=== PATIENT | female | born 1995 | race Caucasian/White ===

== ENCOUNTER 2016-10-30 14:24 | Emergency (ER) | payer MEDICAID ==
[2016-10-30 14:38] VITALS: BP 142/77; PULSE 97; RESP 22; TEMP 98; O2SAT 100
--- NOTE | 2016-10-30 15:06 | ED PDOC ---
HPI: Female Pain Time Seen by Provider: 10/30/16 14:32 Chief Complaint (Nursing): Breast Problem Chief Complaint (Provider): Breast Pain History Per: Patient Additional Complaint(s): 21 yo female, no PMH, presents to ED with complaints of a lumps to bilateral breast, that come and go x years now. Pt very concerned because her mother was recently diagnosed with breast CA Pt reports she is due for her period next month. Taking Motrin with little relief. Past Medical History Reviewed: Nursing Documentation, Vital Signs Vital Signs: Last Vital Signs Temp 98.0 F 10/30/16 14:26 Pulse 97 H 10/30/16 14:26 Resp 22 10/30/16 14:26 BP 142/77 10/30/16 14:26 Pulse Ox 100 10/30/16 14:26 - Medical History PMH: Asthma - Surgical History Surgical History: No Surg Hx - Family History Family History: States: No Known Family Hx - Living Arrangements Living Arrangements: With Family - Home Medications Home Medications: Ambulatory Orders Medication Instructions Recorded Ibuprofen [Motrin] 600 mg PO Q8 #30 tab 12/20/14 Cephalexin [Keflex] 500 mg PO QID #20 cap 12/29/14 Cephalexin [cephalexin] 500 mg PO QID #20 cap 08/30/16 Naproxen [Naprosyn Tab] 375 mg PO Q8 PRN #21 tab 08/30/16 Ibuprofen [Motrin] 600 mg PO Q6 #20 tab 10/30/16 - Allergies Allergies/Adverse Reactions: Allergies Allergy/AdvReac Type Severity Reaction Status Date / Time No Known Allergies Allergy Verified 12/20/14 12:03 Review of Systems ROS Statement: Except As Marked, All Systems Reviewed And Found Negative Genitourinary Female: Positive for: Other (breast pain) Physical Exam - Reviewed Nursing Documentation Reviewed: Yes Vital Signs Reviewed: Yes - Physical Exam Appears: Positive for: Well, Non-toxic, No Acute Distress Head Exam: Positive for: ATRAUMATIC, NORMAL INSPECTION, NORMOCEPHALIC Skin: Positive for: Normal Color, Warm, DRY Eye Exam: Positive for: EOMI, Normal appearance, PERRL ENT: Positive for: Normal ENT Inspection Neck: Positive for: Normal, Painless ROM Cardiovascular/Chest: Positive for: Regular Rate, Rhythm Respiratory: Positive for: CNT, Normal Breath Sounds Gastrointestinal/Abdominal: Positive for: Normal Exam, Bowel Sounds, Soft Back: Positive for: Normal Inspection Extremity: Positive for: Normal ROM Neurologic/Psych: Positive for: Alert, Oriented Comments: bilateral breast: Left (+) tenderness and small, tender, mobile masses felt to 2 upper outter region Right (+) tenderness and small, tender, mobile masses felt to 2 upper outter region Neither with skin changes or nipple discharge - ECG O2 Sat by Pulse Oximetry: 100 Medical Decision Making Medical Decision Making: Breast US: Cystic changes, as per US tech Pt advised to continue to follow up with OB. Signs and symptoms of breast cysts discussed at length Self breast exam practices discussed as well. Disposition - Clinical Impression Clinical Impression: Cyst of breast - Patient ED Disposition Is Patient to be Admitted: No - Disposition Disposition: Routine/Home Disposition Time: 17:37 Condition: STABLE Prescriptions: Ibuprofen [Motrin] 600 mg PO Q6 #20 tab Instructions: Cyst (ED)
--- NOTE | 2016-10-30 19:52 | US ---
EXAM: US Left Breast Complete US Right Breast Complete CLINICAL HISTORY: 21 years old, female; Pain; Breast pain; Bilateral; Additional info: Breast masses bilaterally, at 2 oclock on the right, 10 o'clock on left TECHNIQUE: Static sonographic images of the bilateral breasts with image documentation utilizing a linear transducer. Imaging was obtained in all four quadrants, retroareolar region, and the axillae. EXAM DATE/TIME: 10/30/2016 3:07 PM COMPARISON: No relevant prior studies available. FINDINGS: The upper inner quadrant of the right breast was scanned, in the area of clinical interest, from the 12:00 to 3:00 positions. No masses are seen. No fluid collection is visualized. The upper outer quadrant of the left breast was scanned, in the area of clinical interest, from the 12:00 to 3:00 positions. At the 1:00 position, 1 cm from the nipple, there is a 4.8 x 3.8 x 2 mm anechoic, oval-shaped lesion. This is wider than it is tall, has circumscribed margins, and does not demonstrate flow within it on color imaging. It is associated with mild through transmission. It has an ultrasound appearance most compatible with a simple cyst. No additional lesions are identified. IMPRESSION: 4.8 mm simple cyst at the 1:00 position in the left breast. No focal lesions identified in the right breast. No solid masses visualized. Clinical followup is recommended. Consider followup mammography for further evaluation, as indicated clinically. Birads code 2 Benign findings.
== END 2016-10-30 18:00 | disposition home or self-care (01) ==
LOC: H.ER 14:24
DX: N64.4 Mastodynia (principal); N63 Unspecified lump in breast; J45.909 Unspecified asthma, uncomplicated

== ENCOUNTER 2018-05-04 17:59 | Emergency (ER) | payer MEDICAID, OTHER ==
[2018-05-04] MEDS ORDERED: Naproxen 500 MG TAB PO STA (19:23)
[2018-05-04] MEDS ORDERED: Bacitracin 500 Units/gm Oint Foilpak UD TOP STA (19:24)
--- NOTE | 2018-05-04 19:35 | ED PDOC ---
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 She reports it appeared as if she landed on broken glass and is concerned for a fracture and glass stuck in the hand. Denies meds [employer] or prior fx / surgery to hand. No other complaints, denies head injury or LOC. Right hand dominant Tetanus not up to date. LNMP: 04/30/2018 PMD: Uri Ponce Past Medical History Reviewed: Historical Data, Nursing Documentation, Vital Signs Vital Signs: Last Vital Signs Temp 97.6 F 05/04/18 18:22 Pulse 82 05/04/18 18:22 Resp 16 05/04/18 18:22 BP 129/87 05/04/18 18:22 Pulse Ox 98 05/04/18 18:22 - Medical History PMH: Asthma - Surgical History Surgical History: No Surg Hx - Family History Family History: States: Unknown Family Hx - Immunization History Hx Tetanus Toxoid Vaccination: No (not UTD) - Home Medications Home Medications: Ambulatory Orders Medication Instructions Recorded Albuterol 0.083% [Albuterol 3 ml IH Q4 #30 neb 10/29/17 Sulfate 3 Ml] Albuterol Sulfate [Ventolin Hfa] 1 puff IH PRN PRN 10/29/17 Loratadine/Pseudoephedrine 1 each PO DAILY 10/29/17 [Claritin-D 24 Hour Tablet] Montelukast [Singulair] 5 mg PO DAILY 10/29/17 RX: Albuterol 0.083% [Albuterol 2.5 mg IH PRN PRN 10/29/17 0.083% Inhal Hetal (2.5 mg/3 ml) UD] RX: Azithromycin 250 mg PO DAILY #6 tab 10/29/17 predniSONE [Prednisone] 60 mg PO DAILY #12 tab 10/29/17 Acetaminophen [Acetaminophen 8 650 mg PO Q8 PRN #21 tablet.er 05/04/18 Hour] RX: Bacitracin Ointment 1 applic TOP BID #1 tube 05/04/18 [Bacitracin] RX: Naproxen 500 mg PO BID PRN #20 tab 05/04/18 - Allergies Allergies/Adverse Reactions: Allergies Allergy/AdvReac Type Severity Reaction Status Date / Time No Known Allergies Allergy Verified 12/20/14 12:03 Review of Systems ROS Statement: Except As Marked, All Systems Reviewed And Found Negative Musculoskeletal: Positive for: Hand Pain (right) Physical Exam - Reviewed Nursing Documentation Reviewed: Yes Vital Signs Reviewed: Yes - Physical Exam Comments: GENERAL APPEARANCE: Patient is awake, alert, oriented x 3, uncomfortable appearing. SKIN: Warm, dry; (-) cyanosis. NECK: Supple, FROM ENT: Mucus membranes moist. Airway patent, (-) stridor. CHEST AND RESPIRATORY: (-) rales, (-) rhonchi, (-) wheezes; breath sounds equal bilaterally. Respirations even and nonlabored. HEART AND CARDIOVASCULAR: (-) irregularity RIGHT UPPER EXTREMITY: Dorsum of third MCP right hand .5cm x.5cm superficial skin avulsion; to the dorsum of the 4th MCP of right hand .5cm c-shaped abrasion; to dorsum 5th MCP superficial abrasions x2. (+) Diffuse tenderness to dorsum of right hand. Decreased flexion of digits secondary to pain, full ROM wrist with no tenderness. (-) Snuffbox tenderness. Remainder of Upper Extremity non tender with FROM. NEURO AND PSYCH: Mental status as above. Gait: steady. Speech: clear. (-) facial asymmetry - Laboratory Results Urine POC: Negative - ECG O2 Sat by Pulse Oximetry: 98 (RA) Pulse Ox Interpretation: Normal Medical Decision Making Medical Decision Making: Initial Impression: Acute hand pain and abrasions s/p fall Time: 1919 Initial Plan: --Right hand XR --Naproxen 500mg PO --Tetanus booster 1999 XR: no fracture, no foreign body, as read by MONI. Patient advised that official radiology read of XR is still pending and will call the patient if there is any discrepancy within 24 hours. 2029 Wounds soaked in saline and betadine solution. Bacitracin, telfa, and cling dressing applied by Elaine MONTENEGRO. NV intact after bandage placement. Educated on wound care. Patient supplied with wound care supplies in ED. 2039 On re-evaluation, patient reports improvement of symptoms. On exam, patient remains AAOx3, in no acute distress. Lungs clear to auscultation, cardiac RRR, repeat neuro exam shows no focal findings. Vitals stable. Lab /Diagnostic results d/w the patient in great detail. Diagnosis of acute hand pain, abrasions, skin avulsion s/p fall d/w the patient. Based on history, exam and diagnostic results, plan will be for outpatient follow up with PMD for wound check. Patient instructed to follow-up with pmd / referral provided / the clinic in 1- 2 days without fail. Advised to take medication as prescribed. Return to the emergency room at any time for any new or worsening symptoms. Patient states she fully agrees with and understands discharge instructions. States that she agrees with the plan and disposition. Verbalized and repeated discharge instructions and plan. I have given the patient opportunity to ask any additional questions. Scribe Attestation: Documented by Leeanne Jacobsen, acting as a scribe for Yuki Henry PA-C. Provider Scribe Attestation: All medical record entries made by the Scribe were at my direction and personally dictated by me. I have reviewed the chart and agree that the record accurately reflects my personal performance of the history, physical exam, medical decision making, and the department course for this patient. I have also personally directed, reviewed, and agree with the discharge instructions and disposition. Disposition - Clinical Impression Clinical Impression: Skin avulsion, Abrasion of hand, Hand pain, right, Fall - Patient ED Disposition Is Patient to be Admitted: No Counseled Patient/Family Regarding: Studies Performed, Diagnosis, Need For Followup, Rx Given - Disposition Referrals: Uri Ponce MD [Primary Care Provider] - Disposition: Routine/Home Disposition Time: 20:40 Condition: STABLE Additional Instructions: KEEP WOUND CLEAN AND DRY. LEAVE ED DRESSING IN PLACE FOR 24 HOURS. AFTERWARDS, CLEAN WOUND 2X DAILY WITH SOAP AND WATER. APPLY ANTIBACTERIAL OINTMENT TWICE DAILY AFTER YOU CLEAN WOUND. The emergency medical care you received today was directed at your acute symptoms. If you were prescribed any medication, please fill it and take as directed. It may take several days for your symptoms to resolve. Return to the Emergency Department if your symptoms worsen, do not improve, or if you have any other problems. Please contact your doctor in 2 days for re-evaluation and follow up / or call one of the physicians/clinics you have been referred to that are listed on the Patient Visit Information form that is included in your discharge packet. Bring any paperwork you were given at discharge with you along with any medications you are taking to your follow up visit. Our treatment cannot replace ongoing medical care by a primary care provider (PCP) outside of the emergency department. Prescriptions: Acetaminophen [Acetaminophen 8 Hour] 650 mg PO Q8 PRN #21 tablet.er PRN Reason: Pain, Moderate (4-7) RX: Bacitracin Ointment [Bacitracin] 1 applic TOP BID #1 tube RX: Naproxen 500 mg PO BID PRN #20 tab PRN Reason: Pain, Moderate (4-7) Instructions: Skin Abrasions, Wound Care, Hand Pain Forms: [facility] (Turkish) Print Language: EMIRATI - POA Present On Arrival: Falls Or Trauma
[2018-05-04] MEDS ORDERED: Tdap Vaccine 0.5 ml Vial (10-64 yrs) IM ONE ×2 (19:37→20:18)
[2018-05-04] MEDS ORDERED: Povidone Iodine Topical 10% Sol ONE (19:51)
[2018-05-04] MEDS ORDERED: Naproxen 500 MG TAB PO ONE (20:15)
[2018-05-04] MEDS ORDERED: Bacitracin 500 Units/gm Oint Foilpak UD ONE (20:15)
[2018-05-04 21:04] VITALS: BP 138/74; PULSE 75; RESP 18; TEMP 98.2
--- NOTE | 2018-05-05 10:46 | RAD ---
Date of service: 05/04/2018 PROCEDURE: Radiographs of the right hand HISTORY: r/o FB, r/o fracture COMPARISON: None. FINDINGS: BONES: Bone alignment and mineralization are normal. There is no acute displaced fracture or bone destruction. JOINTS: The joint spaces are preserved. SOFT TISSUES: Normal. No radiopaque foreign body. OTHER FINDINGS: None. IMPRESSION: No acute displaced fracture or dislocation.
[2018-05-05 17:40] VITALS: O2SAT 98
== END 2018-05-04 21:00 | disposition home or self-care (01) ==
LOC: SUPCPDRO 17:59 → H.ER 17:59
DX: S60.511A Abrasion of right hand, initial encounter (principal); M79.641 Pain in right hand; W01.0XXA Fall on same level from slipping, tripping and stumbling without subsequent striking against object, initial encounter; Y92.89 Other specified places as the place of occurrence of the external cause

== ENCOUNTER 2018-06-29 18:44 | Emergency (ER) | payer SELFPAY ==
[2018-06-29 19:11] VITALS: BP 132/84; PULSE 76; RESP 16; TEMP 98.5; O2SAT 100
[2018-06-29 20:18] LABS: BASO % 1.1 % (0.0-2.0); EOS # 0.1 K/uL (0.0-0.7); EOS % 1.8 % (0.0-4.0); HEMOGLOBIN 13.9 g/dL (12.0-16.0); LYMPH # 1.6 K/uL (1.0-4.3); LYMPH % 37.6 % (20.0-40.0); MEAN CELL VOLUME 95.4 fl (81.0-99.0); MEAN CORPUSCULAR HEMOGLOBIN 31.7 pg (27.0-31.0); MEAN CORPUSCULAR HGB CONC 33.3 g/dL (33.0-37.0); MEAN PLATELET VOLUME 7.3 fl (7.2-11.7); MONO # 0.5 K/uL (0.0-0.8); MONO % 12.7 % (0.0-10.0); NEUT % 46.8 % (50.0-75.0); NRBC % 0.1 % (0.0-0.0); RBC 4.37 Mil/uL (3.80-5.20); RED CELL DISTRIBUTION WIDTH 14.1 % (11.5-14.5); WHITE BLOOD COUNT 4.2 K/uL (4.8-10.8)
[2018-06-29 20:31] LABS: SQUAMOUS EPITHIAL 5 /hpf (0-5); URINE BILIRUBIN NEGATIVE (NEGATIVE); URINE BLOOD SMALL (NEGATIVE); URINE CLARITY SLIGHTY-CLOUDY (Clear); URINE COLOR YELLOW (YELLOW); URINE GLUCOSE (UA) NEG (NEGATIVE); URINE LEUKOCYTE ESTERASE NEG Leu/uL (Negative); URINE PROTEIN NEGATIVE (NEGATIVE); URINE UROBILINOGEN 0.2-1.0 mg/dL (0.2-1.0)
[2018-06-29 20:33] LABS: ALB/GLOB RATIO 1.3 (1.0-2.1); ALBUMIN 4.7 g/dL (3.5-5.0); ALT/SGPT 20 U/L (9-52); AST/SGOT 23 U/L (14-36); BLOOD UREA NITROGEN 12 mg/dl (7-17); CALCIUM 9.5 mg/dL (8.4-10.2); GFR NON-AFRICAN AMERICAN > 60; LIPASE 95 U/L (23-300)
--- NOTE | 2018-06-29 20:38 | ED PDOC ---
HPI: Abdomen Time Seen by Provider: 06/29/18 19:14 Chief Complaint (Nursing): Abdominal Pain Chief Complaint (Provider): Abdominal Pain History Per: Patient History/Exam Limitations: no limitations Onset/Duration Of Symptoms: Days (x3 days) Current Symptoms Are (Timing): Constant Severity: Severe Location Of Pain/Discomfort: LLQ Additional Complaint(s): Manda Lucas is a 23 year old female with a hsitory of asthma, who presents to the emergency department complaining of LLQ pain. Patient states that she initially thought that she was having menstrual cramps but she is a week away from her period. She states that the pain is more constant and severe in the past day. Patient denies having any nausea, vomiting, diarrhea, fever or any urinary symptoms. PMD: Uri Ponce Past Medical History Reviewed: Historical Data, Nursing Documentation, Vital Signs Vital Signs: Last Vital Signs Temp 98.5 F 06/29/18 19:08 Pulse 76 06/29/18 19:08 Resp 16 06/29/18 19:08 BP 132/84 06/29/18 19:08 Pulse Ox 100 06/29/18 19:08 - Medical History PMH: Asthma - Surgical History Surgical History: No Surg Hx - Family History Family History: States: Unknown Family Hx - Immunization History Hx Tetanus Toxoid Vaccination: No (not UTD) Hx Influenza Vaccination: Yes Hx Pneumococcal Vaccination: No - Home Medications Home Medications: Ambulatory Orders Medication Instructions Recorded Albuterol 0.083% [Albuterol 0.083% 2.5 mg IH PRN PRN 10/29/17 Inhal Hetal (2.5 mg/3 ml) UD] Albuterol 0.083% [Albuterol 3 ml IH Q4 #30 neb 10/29/17 Sulfate 3 Ml] Albuterol Sulfate [Ventolin Hfa] 1 puff IH PRN PRN 10/29/17 Azithromycin 250 mg PO DAILY #6 tab 10/29/17 Loratadine/Pseudoephedrine 1 each PO DAILY 10/29/17 [Claritin-D 24 Hour Tablet] Montelukast [Singulair] 5 mg PO DAILY 10/29/17 predniSONE [Prednisone] 60 mg PO DAILY #12 tab 10/29/17 Acetaminophen [Acetaminophen 8 650 mg PO Q8 PRN #21 tablet.er 05/04/18 Hour] Bacitracin Ointment [Bacitracin] 1 applic TOP BID #1 tube 05/04/18 Naproxen 500 mg PO BID PRN #20 tab 05/04/18 Naproxen [Naprosyn] 500 mg PO Q12 #14 tab 06/29/18 - Allergies Allergies/Adverse Reactions: Allergies Allergy/AdvReac Type Severity Reaction Status Date / Time No Known Allergies Allergy Verified 06/29/18 19:08 Review of Systems ROS Statement: Except As Marked, All Systems Reviewed And Found Negative Constitutional: Negative for: Fever Gastrointestinal: Positive for: Abdominal Pain. Negative for: Nausea, Vomiting, Diarrhea Genitourinary Female: Negative for: Dysuria, Frequency, Incontinence, Hematuria Physical Exam - Reviewed Nursing Documentation Reviewed: Yes Vital Signs Reviewed: Yes - Physical Exam Appears: Positive for: Non-toxic, No Acute Distress Head Exam: Positive for: ATRAUMATIC, NORMOCEPHALIC Skin: Positive for: Normal Color, Warm, Dry Eye Exam: Positive for: Normal appearance, EOMI, PERRL ENT: Positive for: Normal ENT Inspection Neck: Positive for: Normal, Painless ROM, Supple Cardiovascular/Chest: Positive for: Regular Rate, Rhythm. Negative for: Murmur Respiratory: Positive for: Normal Breath Sounds. Negative for: Respiratory Distress Gastrointestinal/Abdominal: Positive for: Tenderness (LLQ ) Back: Positive for: Normal Inspection. Negative for: L CVA Tenderness, R CVA Tenderness, Vertebral Tenderness Extremity: Positive for: Normal ROM. Negative for: Pedal Edema, Deformity Neurologic/Psych: Positive for: Alert, Oriented. Negative for: Motor/Sensory Deficits - Laboratory Results Result Diagrams: 06/29/18 20:14 06/29/18 20:14 - ECG O2 Sat by Pulse Oximetry: 100 (RA) Pulse Ox Interpretation: Normal Medical Decision Making Medical Decision Making: Time: 2013 Impression: 23 year old female with LLQ tenderness Plan: --CMP --Lipase --ED urine --ED urine dipstick --Urinalysis --Transvaginal US --Toradol 30 mg IV --IV insertion 23:23 Labs reviewed no clinically significant abnormalities. Patient reports mild improvement of symptoms. She is stable for discharge. Diagnosis is ovarian cyst. Scribe Attestation: Documented by Sterling Villagomez, acting as a scribe for Bari Alexander MD. Provider Scribe Attestation: All medical record entries made by the Scribe were at my direction and personally dictated by me. I have reviewed the chart and agree that the record accurately reflects my personal performance of the history, physical exam, medical decision making, and the department course for this patient. I have also personally directed, reviewed, and agree with the discharge instructions and di sposition. Disposition - Clinical Impression Clinical Impression: Ovarian cyst - Disposition Referrals: [facility] [Outside] Disposition: Routine/Home Disposition Time: 23:23 Condition: STABLE Additional Instructions: MANDA LUCAS, thank you for letting us take care of you today. Your provider was Bari Bañuelos MD and you were treated for ABD PAIN. The emergency medical care you received today was directed at your acute symptoms. If you were prescribed any medication, please fill it and take as directed. It may take several days for your symptoms to resolve. Return to the Emergency Department if your symptoms worsen, do not improve, or if you have any other problems. Please contact your doctor or call one of the physicians/clinics you have been referred to that are listed on the Patient Visit Information form that is included in your discharge packet. Bring any paperwork you were given at discharge with you along with any medications you are taking to your follow up visit. Our treatment cannot replace ongoing medical care by a primary care provider outside of the emergency department. Thank you for allowing the [facility] team to be part of your care today. If you had an X-Ray or CT scan: A Radiologist will review the ED reading if any change in treatment is needed we will contact you. If you had a blood, urine, or wound culture: It will take several days for the results, if any change in treatment is needed we will contact you. If you had an STI test: It will take 48 hours for the results. Please call after 1 week if you have not heard back. Prescriptions: Naproxen [Naprosyn] 500 mg PO Q12 #14 tab Instructions: Ovarian Cysts Forms: [facility] (Latvian)
[2018-06-29 20:59] LABS: URINE BACTERIA FEW (<OCC)
--- NOTE | 2018-06-30 12:15 | US ---
Date of service: 06/29/2018 HISTORY: left pelvic pain. Duration of symptoms: 4 days. LMP 06/04/2018. Regular cycles. COMPARISON: None available. TECHNIQUE: Transvaginal only. Real -time technique with 2D, duplex and color Doppler FINDINGS: UTERUS: Measures 3.3 x 5.2 x 7.6 cm. Normal in size and appearance. No fibroid or other mass lesion seen. ENDOMETRIUM: Measures 8.4 mm in diameter. No ultrasound findings to suggest gestational sac, fluid, debris, mass or polyp or other pathologic process within the endometrium. CERVIX: No cervical abnormality identified. RIGHT OVARY: Measures 2.2 x 2.1 x 3.2 cm. No solid mass. Normal flow. Multiple subcentimeter follicles. LEFT OVARY: Measures 3.5 x 3.8 x 3.4 cm. No solid mass. Normal flow. Complex likely hemorrhagic cyst 2.7 cm. FREE FLUID: No significant free fluid noted. OTHER FINDINGS: None. IMPRESSION: Negative study for adnexal torsion. Presumed complex hemorrhagic/debris laden left adnexal cyst. Concordant findings (preliminary report) provided by [facility].
== END 2018-06-29 23:29 | disposition home or self-care (01) ==
LOC: H.ER 18:44
DX: N83.202 Unspecified ovarian cyst, left side (principal)
CPT/HCPCS: 76830; 80053; 81003; 81025; 83690; 85025; 99284; J1885